=== PATIENT | male | born 1980 | race African-American/Black ===

== ENCOUNTER 2016-11-23 20:14 | Observation (INO) | payer MEDICARE, SELFPAY ==
[~2016-11-23] VITALS: Ht 193 cm; Wt 107.3 kg
[2016-11-23] MEDS ORDERED: SODIUM CHLORIDE 0.9% 1,000ML IVBOLUS ONE (21:00)
[2016-11-23] MEDS ORDERED: KETOROLAC 30 MG/1 ML IVPush ONE (21:00)
[2016-11-23] MEDS ORDERED: ZIPRASIDONE 20MG CAPSULE PO SCH (21:00)
[2016-11-23] MEDS ORDERED: LORazepam 1MG TABLET ONE (21:14)
[2016-11-23] MEDS ORDERED: KETOROLAC 30 MG/1 ML ONE (21:15)
[2016-11-23] MEDS ORDERED: LORazepam 1MG TABLET PO ONE (21:30)
[2016-11-23] MEDS: PLEASE ENTER ALLERGIES MC SCH ×2 (21:30)
[2016-11-23 21:31] LABS: ASPARTATE AMINO TRANSFERASE 38 U/L (15-37); BLOOD UREA NITROGEN 13 mg/dL (7-18)
[2016-11-23 21:36] LABS: ACETAMINOPHEN < 2 mcg/mL (10-30)
[2016-11-24 02:05] LABS: DAU SCREEN DISCLAIMER
[2016-11-24] MEDS ORDERED: ACETAMINOPHEN 325 MG TABLET PO PRN (02:30)
[2016-11-24] MEDS ORDERED: DOCUSATE 100 MG CAPSULE PO PRN (02:30)
[2016-11-24] MEDS ORDERED: TRAZODONE 50MG TABLET PO PRN (02:30)
[2016-11-24] MEDS ORDERED: POLYETHYLENE GLYCOL 17 GM PACKET PO PRN (02:30)
[2016-11-24] MEDS ORDERED: BISACODYL 10 MG SUPP PR PRN (02:30)
[2016-11-24] MEDS: PLEASE ENTER ALLERGIES MC SCH ×2 (08:02)
[2016-11-24] MEDS: FOLIC ACID 1 MG TABLET PO SCH (08:40)
[2016-11-24] MEDS: THIAMINE 100MG TABLET PO SCH (08:40)
[2016-11-24] MEDS: NICOTINE 14MG/24 HR PATCH.TD24 TD SCH (09:33)
[2016-11-24 22:18] VITALS: BP 108/76
[2016-11-25] MEDS: NICOTINE 14MG/24 HR PATCH.TD24 TD SCH (02:30)
[2016-11-25 08:00] VITALS: BP 105/60
[2016-11-25] MEDS: THIAMINE 100MG TABLET PO SCH (09:07)
[2016-11-25] MEDS: FOLIC ACID 1 MG TABLET PO SCH (09:07)
[2016-11-25] MEDS: ENOXAPARIN 40 MG/0.4 ML SQ SCH (12:30)
[2016-11-25 19:42] VITALS: BP 104/64
[2016-11-26 07:58] VITALS: BP 142/79
[2016-11-26] MEDS: THIAMINE 100MG TABLET PO SCH (08:48)
[2016-11-26] MEDS: FOLIC ACID 1 MG TABLET PO SCH (08:48)
[2016-11-26] MEDS: NICOTINE 14MG/24 HR PATCH.TD24 TD SCH (08:50)
[2016-11-26] MEDS: ENOXAPARIN 40 MG/0.4 ML SQ SCH (12:30)
[2016-11-26 19:24] VITALS: BP 144/80
[2016-11-27] MEDS: NICOTINE 14MG/24 HR PATCH.TD24 TD SCH (02:11)
[2016-11-27 08:16] VITALS: BP 105/64
[2016-11-27] MEDS: ENOXAPARIN 40 MG/0.4 ML SQ SCH (08:34)
[2016-11-27] MEDS: FOLIC ACID 1 MG TABLET PO SCH (08:34)
[2016-11-27] MEDS: THIAMINE 100MG TABLET PO SCH (08:34)
[2016-11-27 19:12] VITALS: BP 130/81
[2016-11-27 19:36] VITALS: BP 111/72
[2016-11-27] MEDS ORDERED: TRAZODONE 50MG TABLET ONE (20:48)
[2016-11-27] MEDS ORDERED: QUETIAPINE 100MG TABLET PO SCH (21:00)
[2016-11-27] MEDS: TRAZODONE 100MG TABLET PO PRN (22:05)
[2016-11-28] MEDS: NICOTINE 14MG/24 HR PATCH.TD24 TD SCH (02:56)
[2016-11-28] MEDS: FOLIC ACID 1 MG TABLET PO SCH (08:06)
[2016-11-28] MEDS: THIAMINE 100MG TABLET PO SCH (08:07)
[2016-11-28 08:20] VITALS: BP 124/78
[2016-11-28] MEDS: ENOXAPARIN 40 MG/0.4 ML SQ SCH (12:45)
[2016-11-28 16:03] LABS: ASPARTATE AMINO TRANSFERASE 7 U/L (15-37); BLOOD UREA NITROGEN 14 mg/dL (7-18)
[2016-11-28 19:53] VITALS: BP 93/55
[2016-11-28] MEDS: QUETIAPINE 100MG TABLET PO SCH (20:32)
[2016-11-28] MEDS ORDERED: QUETIAPINE 100MG TABLET PO SCH (21:00)
[2016-11-28] MEDS: TRAZODONE 100MG TABLET PO PRN (21:03)
[2016-11-28] MEDS ORDERED: TRAZODONE 50MG TABLET ONE (21:03)
[2016-11-29 08:06] VITALS: BP 107/70
[2016-11-29] MEDS: THIAMINE 100MG TABLET PO SCH (08:33)
[2016-11-29] MEDS: FOLIC ACID 1 MG TABLET PO SCH (08:33)
[2016-11-29] MEDS: NICOTINE 14MG/24 HR PATCH.TD24 TD SCH (08:35)
[2016-11-29] MEDS: ENOXAPARIN 40 MG/0.4 ML SQ SCH (12:49)
[2016-11-29 19:51] VITALS: BP 106/69
[2016-11-29] MEDS: QUETIAPINE 100MG TABLET PO SCH (20:15)
[2016-11-29] MEDS ORDERED: TRAZODONE 100MG TABLET PO PRN (20:30)
[2016-11-30 08:11] LABS: BLOOD UREA NITROGEN 9 mg/dL (7-18)
[2016-11-30 08:26] VITALS: BP 113/76
[2016-11-30] MEDS: FOLIC ACID 1 MG TABLET PO SCH (08:36)
[2016-11-30] MEDS: THIAMINE 100MG TABLET PO SCH (08:36)
[2016-11-30] MEDS: NICOTINE 14MG/24 HR PATCH.TD24 TD SCH (08:38)
[2016-11-30] MEDS: ENOXAPARIN 40 MG/0.4 ML SQ SCH (12:30)
[2016-11-30] MEDS ORDERED: QUET100T PO (16:33)
[2016-11-30] MEDS ORDERED: THIA100T6 PO (16:33)
[2016-11-30] MEDS ORDERED: FOLI-17 PO (16:33)
== END 2016-11-30 16:49 ==
LOC: ED 22:33 → EDIP 11-24 00:05 → 3E 11-24 12:13
PROVIDERS: ADMIT Internal Medicine; ATTEND Internal Medicine
DX: R45.851 Suicidal ideations (principal); R17 Unspecified jaundice; F25.0 Schizoaffective disorder, bipolar type; F10.10 Alcohol abuse, uncomplicated; F33.9 Major depressive disorder, recurrent, unspecified; F11.10 Opioid abuse, uncomplicated; F17.200 Nicotine dependence, unspecified, uncomplicated; Z91.5 Personal history of self-harm; Z91.19 Patient's noncompliance with other medical treatment and regimen
CPT/HCPCS: 36415; 74176; 80048; 80053; 80307; 80329; 81001; 85025; 96361; 96372; 96374; 99285; G0378; J1650; J1885; J7030; Q0177; G0480

== ENCOUNTER 2016-12-07 03:36 | Observation (INO) | payer MEDICARE ==
[~2016-12-07] VITALS: Ht 182.9 cm; Wt 109.0 kg
[~2016-12-07 03:36] MED LIST: FOLI-17 PO; QUET100T PO; THIA100T6 PO
[2016-12-07] MEDS ORDERED: ZIPRASIDONE 20 MG INJ IM ONE (04:15)
[2016-12-07] MEDS ORDERED: DIPHENHYDRAMINE 50 MG/ML, 1ML ONE (04:18)
[2016-12-07] MEDS ORDERED: HALOPERIDOL 5 MG/ML ONE (04:19)
[2016-12-07] MEDS ORDERED: LORazepam 2 MG/ML, 1ML ONE (04:19)
[2016-12-07] MEDS ORDERED: DIPHENHYDRAMINE 50 MG/ML, 1ML IM ONE (04:30)
[2016-12-07] MEDS ORDERED: LORazepam 2 MG/ML, 1ML IM ONE (04:30)
[2016-12-07] MEDS ORDERED: HALOPERIDOL 5 MG/ML IM ONE (04:30)
[2016-12-07 04:55] LABS: BLOOD UREA NITROGEN 16 mg/dL (7-18)
[2016-12-07 04:59] LABS: ACETAMINOPHEN < 2 mcg/mL (10-30)
[2016-12-07 12:32] LABS: DAU SCREEN DISCLAIMER
[2016-12-07] MEDS ORDERED: BISACODYL 10 MG SUPP PR PRN (15:00)
[2016-12-07] MEDS ORDERED: LORazepam 1MG TABLET PO PRN (15:00)
[2016-12-07] MEDS ORDERED: POLYETHYLENE GLYCOL 17 GM PACKET PO PRN (15:00)
[2016-12-07] MEDS ORDERED: DIPHENHYDRAMINE 50 MG CAPSULE PO PRN (15:00)
[2016-12-07] MEDS ORDERED: DOCUSATE 100 MG CAPSULE PO PRN (15:00)
[2016-12-07] MEDS ORDERED: HALOPERIDOL 5 MG TABLET PO PRN (15:00)
[2016-12-07 15:38] VITALS: BP 137/73
[2016-12-07] MEDS: POTASSIUM CHLORIDE 20 MEQ TAB.ER.PRT PO SCH (17:21)
[2016-12-07] MEDS: NICOTINE 7 MG/24 HR PATCH.TD24 TD SCH (17:22)
[2016-12-07 19:53] VITALS: BP 110/70
[2016-12-08 06:19] LABS: BLOOD UREA NITROGEN 12 mg/dL (7-18)
[2016-12-08 07:45] VITALS: BP 122/82
[2016-12-08] MEDS: POTASSIUM CHLORIDE 20 MEQ TAB.ER.PRT PO SCH ×3 (08:00→17:20)
[2016-12-08] MEDS: NICOTINE 7 MG/24 HR PATCH.TD24 TD SCH (17:13)
[2016-12-08] MEDS: MAGNESIUM CHLORIDE 64 MG TABLET.DR PO SCH ×2 (17:13→21:35)
[2016-12-08] MEDS ORDERED: PLEASE ENTER WEIGHT MC SCH (17:29)
[2016-12-08 17:30] VITALS: BP 118/71
[2016-12-08] MEDS: HYDROcodone/APAP 5/325 TABLET PO PRN (17:53)
[2016-12-08] MEDS ORDERED: ACETAMINOPHEN 325 MG TABLET PO PRN (18:00)
[2016-12-08 20:05] VITALS: BP 121/76
[2016-12-09] MEDS: HYDROcodone/APAP 5/325 TABLET PO PRN ×2 (02:15→19:22)
[2016-12-09 05:59] LABS: BLOOD UREA NITROGEN 11 mg/dL (7-18)
[2016-12-09 08:00] VITALS: BP 116/63
[2016-12-09] MEDS: MAGNESIUM CHLORIDE 64 MG TABLET.DR PO SCH ×3 (08:07→21:00)
[2016-12-09] MEDS: POTASSIUM CHLORIDE 20 MEQ TAB.ER.PRT PO SCH ×2 (08:07→12:39)
[2016-12-09] MEDS: NICOTINE 7 MG/24 HR PATCH.TD24 TD SCH (15:40)
[2016-12-09 20:01] VITALS: BP 121/77
[2016-12-09] MEDS ORDERED: SULFAMETH./TRIMETHOPRIM DS 800MG/160MG TABLET PO SCH (21:00)
== END 2016-12-09 20:30 ==
LOC: ED 05:31 → EDIP 14:03 → 3E 15:36
PROVIDERS: ADMIT Internal Medicine; ATTEND Internal Medicine
DX: R45.851 Suicidal ideations (principal); F31.9 Bipolar disorder, unspecified; R44.0 Auditory hallucinations; F19.10 Other psychoactive substance abuse, uncomplicated; E87.6 Hypokalemia; F25.9 Schizoaffective disorder, unspecified; F17.200 Nicotine dependence, unspecified, uncomplicated; Z91.5 Personal history of self-harm; F22 Delusional disorders
CPT/HCPCS: 36415; 73630; 80048; 80307; 80329; 81003; 82040; 85025; 96372; 99285; G0378; J1200; J1630; J2060; G0480

== ENCOUNTER 2017-01-05 12:26 | Observation (INO) | payer MEDICARE, OTHER ==
[~2017-01-05] VITALS: Ht 193 cm; Wt 128.0 kg
[2017-01-05 12:55] LABS: DAU SCREEN DISCLAIMER
[2017-01-05 13:19] LABS: HEMATOCRIT 43.2 % (39.2-51.8); WHITE BLOOD COUNT 6.7 x10^3/uL (3.4-10)
[2017-01-05 13:27] LABS: ASPARTATE AMINO TRANSFERASE 41 U/L (15-37); BLOOD UREA NITROGEN 10 mg/dL (7-18)
[2017-01-05 13:30] LABS: ACETAMINOPHEN < 2 mcg/mL (10-30)
[2017-01-05] MEDS ORDERED: POTASSIUM CHLORIDE 20 MEQ TAB.ER.PRT ONE (13:58)
[2017-01-05] MEDS ORDERED: POTASSIUM CHLORIDE 20 MEQ TAB.ER.PRT PO ONE (14:00)
[2017-01-05] MEDS ORDERED: POLYETHYLENE GLYCOL 17 GM PACKET PO PRN (19:30)
[2017-01-05] MEDS ORDERED: BISACODYL 10 MG SUPP PR PRN (19:30)
[2017-01-05] MEDS ORDERED: DOCUSATE 100 MG CAPSULE PO PRN (19:30)
[2017-01-05] MEDS ORDERED: ACETAMINOPHEN 325 MG TABLET PO PRN (19:30)
[2017-01-05] MEDS ORDERED: QUETIAPINE 25MG TABLET PO PRN (19:30)
[2017-01-05] MEDS ORDERED: LORazepam 1MG TABLET PO PRN (19:30)
[2017-01-05] MEDS ORDERED: ONDANSETRON ODT 4 MG PO PRN (19:30)
[2017-01-05 20:11] VITALS: BP 145/81
[2017-01-05] MEDS ORDERED: QUETIAPINE 100MG TABLET PO SCH (21:00)
[2017-01-06 06:02] LABS: BLOOD UREA NITROGEN 8 mg/dL (7-18)
[2017-01-06 07:42] VITALS: BP 128/75
[2017-01-06] MEDS ORDERED: FOLIC ACID 1 MG TABLET PO SCH (09:00)
[2017-01-06] MEDS ORDERED: MULTIVITAMIN 1 TABLET PO SCH (09:00)
[2017-01-06] MEDS ORDERED: THIAMINE 100MG TABLET PO SCH (09:00)
[2017-01-06] MEDS ORDERED: POTASSIUM CHLORIDE 20 MEQ TAB.ER.PRT PO SCH (17:00)
== END 2017-01-06 15:04 ==
LOC: EDBD → ED 15:22 → MERGE 15:22 → SUATTDRO 19:02 → EDIP 19:17 → INTOOBSV 19:17 → 3E 20:09
DX: R45.851 Suicidal ideations (principal); M79.673 Pain in unspecified foot; G89.29 Other chronic pain; E87.6 Hypokalemia; F15.20 Other stimulant dependence, uncomplicated; F17.210 Nicotine dependence, cigarettes, uncomplicated; F19.10 Other psychoactive substance abuse, uncomplicated; F25.9 Schizoaffective disorder, unspecified; F31.9 Bipolar disorder, unspecified
CPT/HCPCS: 36415; 80048; 80053; 80307; 80329; 83735; 85025; 93005; 99285; G0378; G0480

== ENCOUNTER 2017-07-09 23:30 | Observation (INO) | payer MEDICARE ==
[~2017-07-09] VITALS: Ht 193 cm; Wt 115.0 kg
[2017-07-10] MEDS ORDERED: ACETAMINOPHEN 325 MG TABLET PO ONE (00:30)
[2017-07-10 00:54] LABS: ALANINE AMINOTRANSFERASE 52 U/L (12-78); ALBUMIN 3.9 g/dL (3.4-5.0); ANION GAP 11 mmol/L (5-15); CALCIUM 8.4 mg/dL (8.5-10.1); CHLORIDE 103 mmol/L (98-107); CREATININE 0.93 mg/dL (0.7-1.3)
[2017-07-10 00:56] LABS: ALKALINE PHOSPHATASE 78 U/L (45-117); BILIRUBIN,TOTAL 1.1 mg/dL (0.2-1.0); TOTAL PROTEIN 7.7 g/dL (6.4-8.2)
[2017-07-10 00:57] LABS: ACETAMINOPHEN < 2 mcg/mL (10-30); SALICYLATE LEVEL < 1.7 mg/dL (2.8-20.0)
[2017-07-10 00:58] LABS: BASOPHILS # (AUTO) 0.03 x10^3/uL (0-0.1); BASOPHILS % (AUTO) 1 % (0-1); EOSINOPHILS # (AUTO) 0.07 x10^3/uL (0-0.4); EOSINOPHILS % (AUTO) 1 % (1-7); LYMPHOCYTES # (AUTO) 1.52 x10^3/uL (1-3.4); LYMPHOCYTES % (AUTO) 24 % (22-44); MD NO; MEAN CORPUSCULAR HEMOGLOBIN 31.1 pg (27.5-34.5); MEAN CORPUSCULAR HGB CONC 34.3 g/dL (33.2-36.2); MEAN CORPUSCULAR VOLUME 90.7 fL (81-97); MEAN PLATELET VOLUME 9.3 fL (7.4-10.4); MONOCYTES # (AUTO) 0.76 x10^3/uL (0.2-0.8); MONOCYTES % (AUTO) 12 % (2-9); NEUTROPHILS # (AUTO) 3.84 x10^3/uL (1.8-6.8); NEUTROPHILS % (AUTO) 62 % (42-75); PLATELET COUNT 218 x10^3/uL (130-400); RED BLOOD COUNT 4.69 x10^6/uL (4.38-5.82); RED CELL DISTRIBUTION WIDTH 12.3 % (9.4-14.8)
[2017-07-10] MEDS ORDERED: QUETIAPINE 25MG TABLET ONE (02:59)
[2017-07-10] MEDS ORDERED: QUETIAPINE 100MG TABLET PO ONE (03:00)
[2017-07-10] MEDS ORDERED: DOCUSATE 100 MG CAPSULE PO PRN (05:30)
[2017-07-10] MEDS ORDERED: LORazepam 2 MG/ML, 1ML IM PRN (05:30)
[2017-07-10] MEDS ORDERED: ACETAMINOPHEN 325 MG TABLET PO PRN (05:30)
[2017-07-10] MEDS ORDERED: ONDANSETRON ODT 4 MG PO PRN (05:30)
[2017-07-10 05:57] LABS: FREE T4 (FREE THYROXINE) 1.36 ng/dL (0.76-1.46); THYROID STIMULATING HORMONE 1.36 mIU/L (0.358-3.740)
[2017-07-10] MEDS ORDERED: THIAMINE 100MG TABLET ONE (07:26)
[2017-07-10] MEDS: GABAPENTIN 100 MG CAPSULE PO SCH ×4 (08:00→22:09)
[2017-07-10] MEDS: THIAMINE 100MG TABLET PO SCH (08:00)
[2017-07-10 09:11] LABS: MICROSCOPIC NOT IND
[2017-07-10 09:20] LABS: AMPHETAMINE SCREEN, URINE Positive (Negative); BARBITURATE SCREEN, URINE Negative (Negative); BENZODIAZEPINE SCREEN, URINE Negative (Negative); CANNABINOID SCREEN, URINE Positive (Negative); COCAINE SCREEN, URINE Negative (Negative); METHADONE SCREEN, URINE Negative (Negative); OPIATE SCREEN, URINE Positive (Negative)
[2017-07-10 09:24] LABS: CULTURE INDICATED? NO
[2017-07-10] MEDS: FOLIC ACID 1 MG TABLET PO SCH (10:00)
[2017-07-10] MEDS ORDERED: FLUO10CA7 PO (10:17)
[2017-07-10] MEDS: FLUOXETINE HCL 20 MG CAPSULE PO SCH (14:23)
[2017-07-10] MEDS ORDERED: QUETIAPINE 100MG TABLET ONE (22:04)
[2017-07-10] MEDS: QUETIAPINE 100MG TABLET PO SCH (22:09)
[2017-07-11] MEDS ORDERED: THIAMINE 100MG TABLET ONE (07:16)
[2017-07-11] MEDS ORDERED: FLUOXETINE HCL 20 MG CAPSULE ONE (07:16)
[2017-07-11] MEDS: FLUOXETINE HCL 20 MG CAPSULE PO SCH (07:25)
[2017-07-11] MEDS: GABAPENTIN 100 MG CAPSULE PO SCH ×4 (07:25→20:27)
[2017-07-11] MEDS: THIAMINE 100MG TABLET PO SCH (07:25)
[2017-07-11] MEDS ORDERED: LORazepam 1MG TABLET ONE (08:53)
[2017-07-11] MEDS: FOLIC ACID 1 MG TABLET PO SCH (08:55)
[2017-07-11] MEDS: LORazepam 1MG TABLET PO PRN (08:55)
[2017-07-11 17:08] VITALS: BP 129/78
[2017-07-11 19:48] VITALS: BP 126/71
[2017-07-11] MEDS: QUETIAPINE 100MG TABLET PO SCH (20:27)
[2017-07-12] MEDS: GABAPENTIN 100 MG CAPSULE PO SCH ×4 (06:25→21:20)
[2017-07-12 08:00] VITALS: BP 131/77
[2017-07-12] MEDS: THIAMINE 100MG TABLET PO SCH (08:35)
[2017-07-12] MEDS: FLUOXETINE HCL 20 MG CAPSULE PO SCH (08:35)
[2017-07-12] MEDS: FOLIC ACID 1 MG TABLET PO SCH (08:35)
[2017-07-12 19:39] VITALS: BP 129/81
[2017-07-12] MEDS: QUETIAPINE 100MG TABLET PO SCH (21:20)
[2017-07-13] MEDS: GABAPENTIN 100 MG CAPSULE PO SCH ×4 (06:19→20:37)
[2017-07-13 07:19] VITALS: BP 149/90
[2017-07-13] MEDS: FOLIC ACID 1 MG TABLET PO SCH (08:19)
[2017-07-13] MEDS: THIAMINE 100MG TABLET PO SCH (08:19)
[2017-07-13] MEDS: FLUOXETINE HCL 20 MG CAPSULE PO SCH (08:19)
[2017-07-13 19:39] VITALS: BP 123/74
[2017-07-13] MEDS: QUETIAPINE 100MG TABLET PO SCH (20:37)
[2017-07-14] MEDS: THIAMINE 100MG TABLET PO SCH (07:40)
[2017-07-14] MEDS: GABAPENTIN 100 MG CAPSULE PO SCH ×4 (07:40→21:17)
[2017-07-14] MEDS: FLUOXETINE HCL 20 MG CAPSULE PO SCH (07:41)
[2017-07-14] MEDS: FOLIC ACID 1 MG TABLET PO SCH (07:41)
[2017-07-14 07:44] VITALS: BP 111/69
[2017-07-14 19:37] VITALS: BP 131/69
[2017-07-14] MEDS: QUETIAPINE 100MG TABLET PO SCH (21:17)
[2017-07-15] MEDS: GABAPENTIN 100 MG CAPSULE PO SCH ×4 (06:00→19:58)
[2017-07-15 07:24] VITALS: BP 122/79
[2017-07-15] MEDS: FOLIC ACID 1 MG TABLET PO SCH (08:42)
[2017-07-15] MEDS: FLUOXETINE HCL 20 MG CAPSULE PO SCH (08:42)
[2017-07-15] MEDS: THIAMINE 100MG TABLET PO SCH (08:42)
[2017-07-15 19:37] VITALS: BP 134/74
[2017-07-15] MEDS: QUETIAPINE 100MG TABLET PO SCH (19:59)
[2017-07-16] MEDS: GABAPENTIN 100 MG CAPSULE PO SCH ×4 (06:35→19:59)
[2017-07-16 07:55] VITALS: BP 117/74
[2017-07-16] MEDS: THIAMINE 100MG TABLET PO SCH (08:27)
[2017-07-16] MEDS: FOLIC ACID 1 MG TABLET PO SCH (08:27)
[2017-07-16] MEDS: FLUOXETINE HCL 20 MG CAPSULE PO SCH (08:27)
[2017-07-16 19:28] VITALS: BP 127/80
[2017-07-16] MEDS: QUETIAPINE 100MG TABLET PO SCH (20:00)
[2017-07-17] MEDS: GABAPENTIN 100 MG CAPSULE PO SCH ×4 (06:03→20:50)
[2017-07-17 07:30] VITALS: BP 118/69
[2017-07-17] MEDS: FOLIC ACID 1 MG TABLET PO SCH (08:46)
[2017-07-17] MEDS: FLUOXETINE HCL 20 MG CAPSULE PO SCH (08:46)
[2017-07-17] MEDS: THIAMINE 100MG TABLET PO SCH (08:46)
[2017-07-17] MEDS: LORazepam 1MG TABLET PO PRN (16:01)
[2017-07-17 20:00] VITALS: BP 122/83
[2017-07-17] MEDS: QUETIAPINE 100MG TABLET PO SCH (20:50)
[2017-07-18 07:30] VITALS: BP 98/75
[2017-07-18] MEDS: GABAPENTIN 100 MG CAPSULE PO SCH ×4 (07:43→20:26)
[2017-07-18] MEDS: FOLIC ACID 1 MG TABLET PO SCH (08:44)
[2017-07-18] MEDS: THIAMINE 100MG TABLET PO SCH (08:44)
[2017-07-18] MEDS: FLUOXETINE HCL 20 MG CAPSULE PO SCH (08:45)
[2017-07-18] MEDS: LORazepam 1MG TABLET PO PRN (13:34)
[2017-07-18] MEDS ORDERED: LORazepam 1MG TABLET PO PRN (15:00)
[2017-07-18 20:10] VITALS: BP 125/79
[2017-07-18] MEDS: QUETIAPINE 100MG TABLET PO SCH (20:26)
[2017-07-19] MEDS: GABAPENTIN 100 MG CAPSULE PO SCH ×4 (06:39→20:19)
[2017-07-19] MEDS: FLUOXETINE HCL 20 MG CAPSULE PO SCH (08:22)
[2017-07-19] MEDS: FOLIC ACID 1 MG TABLET PO SCH (08:22)
[2017-07-19] MEDS: THIAMINE 100MG TABLET PO SCH (08:23)
[2017-07-19 08:24] VITALS: BP 131/86
[2017-07-19] MEDS: hydrOXyzine 10MG TABLET PO PRN (18:25)
[2017-07-19 19:39] VITALS: BP 120/77
[2017-07-19] MEDS: QUETIAPINE 100MG TABLET PO SCH (20:20)
[2017-07-20] MEDS: GABAPENTIN 100 MG CAPSULE PO SCH ×4 (06:10→20:28)
[2017-07-20 07:40] VITALS: BP 103/62
[2017-07-20] MEDS: THIAMINE 100MG TABLET PO SCH (08:25)
[2017-07-20] MEDS: FOLIC ACID 1 MG TABLET PO SCH (08:25)
[2017-07-20] MEDS: FLUOXETINE HCL 20 MG CAPSULE PO SCH (08:25)
[2017-07-20] MEDS: hydrOXyzine 10MG TABLET PO PRN (10:45)
[2017-07-20 19:58] VITALS: BP 121/84
[2017-07-20] MEDS: QUETIAPINE 100MG TABLET PO SCH (20:28)
[2017-07-21] MEDS: GABAPENTIN 100 MG CAPSULE PO SCH ×2 (06:47→11:02)
[2017-07-21] MEDS: hydrOXyzine 10MG TABLET PO PRN (08:01)
[2017-07-21] MEDS: FLUOXETINE HCL 20 MG CAPSULE PO SCH (08:01)
[2017-07-21] MEDS: FOLIC ACID 1 MG TABLET PO SCH (08:01)
[2017-07-21] MEDS: THIAMINE 100MG TABLET PO SCH (08:01)
[2017-07-21 08:32] VITALS: BP 97/59
== END 2017-07-21 14:46 ==
LOC: ED 23:59 → EDIP 07-10 03:46 → 2N 07-11 16:53
PROVIDERS: ADMIT Internal Medicine; ATTEND Internal Medicine
DX: R45.851 Suicidal ideations (principal); F25.9 Schizoaffective disorder, unspecified; F31.9 Bipolar disorder, unspecified; F15.10 Other stimulant abuse, uncomplicated; F10.10 Alcohol abuse, uncomplicated; F17.210 Nicotine dependence, cigarettes, uncomplicated; Z59.0 Homelessness
CPT/HCPCS: 36415; 80053; 80307; 80329; 81003; 84439; 84443; 85025; 99285; G0378; G0480

== ENCOUNTER 2017-08-21 20:51 | Emergency (ER) | payer MEDICARE ==
[~2017-08-21] VITALS: Ht 188 cm; Wt 114.0 kg
[~2017-08-21 20:51] MED LIST changes: +FLUO10CA7 PO
[2017-08-21] MEDS ORDERED: LORazepam 1MG TABLET ONE (21:09)
[2017-08-21] MEDS ORDERED: HALOPERIDOL 5 MG/ML IM ONE (21:30)
[2017-08-21] MEDS ORDERED: LORazepam 1MG TABLET PO ONE (21:30)
[2017-08-21] MEDS ORDERED: HALOPERIDOL 5 MG/ML ONE (21:33)
[2017-08-21] MEDS ORDERED: SODIUM CHLORIDE 0.9% 1,000ML IVBOLUS ONE (22:00)
[2017-08-21] MEDS ORDERED: LORazepam 2 MG/ML, 1ML ONE (22:14)
[2017-08-21 22:18] LABS: BASOPHILS # (AUTO) 0.03 x10^3/uL (0-0.1); BASOPHILS % (AUTO) 1 % (0-1); EOSINOPHILS # (AUTO) 0.03 x10^3/uL (0-0.4); EOSINOPHILS % (AUTO) 0 % (1-7); LYMPHOCYTES # (AUTO) 1.41 x10^3/uL (1-3.4); LYMPHOCYTES % (AUTO) 19 % (22-44); MD NO; MEAN CORPUSCULAR HEMOGLOBIN 31.5 pg (27.5-34.5); MEAN CORPUSCULAR HGB CONC 34.6 g/dL (33.2-36.2); MEAN CORPUSCULAR VOLUME 91.1 fL (81-97); MEAN PLATELET VOLUME 9.1 fL (7.4-10.4); MONOCYTES # (AUTO) 0.78 x10^3/uL (0.2-0.8); MONOCYTES % (AUTO) 11 % (2-9); NEUTROPHILS % (AUTO) 69 % (42-75); PLATELET COUNT 196 x10^3/uL (130-400); RED BLOOD COUNT 4.31 x10^6/uL (4.38-5.82); RED CELL DISTRIBUTION WIDTH 13.3 % (9.4-14.8)
[2017-08-21 22:28] LABS: ALANINE AMINOTRANSFERASE 39 U/L (12-78); ALBUMIN 3.5 g/dL (3.4-5.0); ANION GAP 10 mmol/L (5-15); CALCIUM 8.3 mg/dL (8.5-10.1); CHLORIDE 106 mmol/L (98-107); CREATININE 0.92 mg/dL (0.7-1.3)
[2017-08-21] MEDS ORDERED: LORazepam 2 MG/ML, 1ML IM ONE (22:30)
[2017-08-21 22:31] LABS: ALKALINE PHOSPHATASE 80 U/L (45-117); BILIRUBIN,TOTAL 1.4 mg/dL (0.2-1.0)
[2017-08-21 22:32] LABS: ACETAMINOPHEN < 2 mcg/mL (10-30); SALICYLATE LEVEL < 1.7 mg/dL (2.8-20.0)
[2017-08-22] MEDS ORDERED: OMNIPAQUE 350 MG/ML, 100ML BOTTLE ONE (02:09)
[2017-08-22 04:09] VITALS: BP 137/85
== END 2017-08-22 05:36 | disposition home or self-care (01) ==
LOC: ED 23:41
DX: S30.0XXA Contusion of lower back and pelvis, initial encounter (principal); S20.229A Contusion of unspecified back wall of thorax, initial encounter; Z79.899 Other long term (current) drug therapy; F31.9 Bipolar disorder, unspecified; F25.9 Schizoaffective disorder, unspecified; Z72.9 Problem related to lifestyle, unspecified; W22.8XXA Striking against or struck by other objects, initial encounter; Y93.89 Activity, other specified; Y99.8 Other external cause status; Y92.89 Other specified places as the place of occurrence of the external cause
CPT/HCPCS: 36415; 71260; 74177; 80053; 80307; 80329; 83690; 85025; 96360; 96361; 96372; 99291; J1630; J2060; J7030; Q9967; G0480

== ENCOUNTER 2017-09-08 01:02 | Observation (INO) | payer MEDICARE, MEDICAID ==
[~2017-09-08] VITALS: Ht 185.4 cm; Wt 100.6 kg
[2017-09-08 01:54] LABS: BASOPHILS # (AUTO) 0.03 x10^3/uL (0-0.1); BASOPHILS % (AUTO) 0 % (0-1); EOSINOPHILS # (AUTO) 0.05 x10^3/uL (0-0.4); EOSINOPHILS % (AUTO) 1 % (1-7); LYMPHOCYTES # (AUTO) 1.74 x10^3/uL (1-3.4); LYMPHOCYTES % (AUTO) 20 % (22-44); MD NO; MEAN CORPUSCULAR HEMOGLOBIN 30.4 pg (27.5-34.5); MEAN CORPUSCULAR HGB CONC 33.3 g/dL (33.2-36.2); MEAN CORPUSCULAR VOLUME 91.2 fL (81-97); MEAN PLATELET VOLUME 8.3 fL (7.4-10.4); MONOCYTES # (AUTO) 1.03 x10^3/uL (0.2-0.8); MONOCYTES % (AUTO) 12 % (2-9); NEUTROPHILS # (AUTO) 5.67 x10^3/uL (1.8-6.8); NEUTROPHILS % (AUTO) 67 % (42-75); PLATELET COUNT 218 x10^3/uL (130-400); RED BLOOD COUNT 4.61 x10^6/uL (4.38-5.82); RED CELL DISTRIBUTION WIDTH 14.2 % (9.4-14.8)
[2017-09-08] MEDS ORDERED: LORazepam 1MG TABLET ONE (01:59)
[2017-09-08] MEDS ORDERED: LORazepam 1MG TABLET PO ONE (02:00)
[2017-09-08 02:06] LABS: ALBUMIN 3.8 g/dL (3.4-5.0); ANION GAP 12 mmol/L (5-15); CALCIUM 8.5 mg/dL (8.5-10.1); CHLORIDE 104 mmol/L (98-107); CREATININE 0.85 mg/dL (0.7-1.3)
[2017-09-08 02:10] LABS: SALICYLATE LEVEL < 1.7 mg/dL (2.8-20.0)
[2017-09-08 02:11] LABS: ACETAMINOPHEN < 2 mcg/mL (10-30)
[2017-09-08 06:27] LABS: AMPHETAMINE SCREEN, URINE Positive (Negative); BARBITURATE SCREEN, URINE Negative (Negative); BENZODIAZEPINE SCREEN, URINE Negative (Negative); CANNABINOID SCREEN, URINE Negative (Negative); COCAINE SCREEN, URINE Negative (Negative); METHADONE SCREEN, URINE Negative (Negative); OPIATE SCREEN, URINE Negative (Negative)
[2017-09-08 08:35] VITALS: BP 119/77
[2017-09-08] MEDS: THIAMINE 100MG TABLET PO SCH (09:09)
[2017-09-08] MEDS: FOLIC ACID 1 MG TABLET PO SCH (09:09)
[2017-09-08] MEDS: FLUOXETINE HCL 20 MG CAPSULE PO SCH (09:10)
[2017-09-08] MEDS: ACETAMINOPHEN 325 MG TABLET PO PRN (18:09)
[2017-09-08 19:29] VITALS: BP 121/73
[2017-09-08] MEDS: QUETIAPINE 100MG TABLET PO SCH ×2 (20:12→20:23)
[2017-09-09 07:38] VITALS: BP 112/67
[2017-09-09] MEDS: ACETAMINOPHEN 325 MG TABLET PO PRN (07:58)
[2017-09-09] MEDS: FOLIC ACID 1 MG TABLET PO SCH (07:58)
[2017-09-09] MEDS: THIAMINE 100MG TABLET PO SCH (07:58)
[2017-09-09] MEDS: FLUOXETINE HCL 20 MG CAPSULE PO SCH (07:58)
== END 2017-09-09 19:21 ==
LOC: SUATTDRO 03:44 → ED 04:05 → EDIP 04:16 → 3E 08:21
PROVIDERS: ADMIT Hospitalist; ATTEND Hospitalist
DX: T14.91XA Suicide attempt, initial encounter (principal); F25.9 Schizoaffective disorder, unspecified; F31.9 Bipolar disorder, unspecified; F10.129 Alcohol abuse with intoxication, unspecified; F15.10 Other stimulant abuse, uncomplicated; X83.8XXA Intentional self-harm by other specified means, initial encounter; Y93.89 Activity, other specified; Y92.89 Other specified places as the place of occurrence of the external cause; Y99.8 Other external cause status; Z91.5 Personal history of self-harm
CPT/HCPCS: 36415; 73110; 80048; 80307; 80329; 82040; 85025; 99285; G0378; G0480

== ENCOUNTER 2017-10-19 06:48 | Observation (INO) | payer MEDICARE, MEDICAID ==
[~2017-10-19] VITALS: Ht 193 cm; Wt 102.1 kg
[2017-10-19] MEDS ORDERED: ONDANSETRON ODT 4 MG PO ONE (07:00)
[2017-10-19 07:12] LABS: BASOPHILS # (AUTO) 0.04 x10^3/uL (0-0.1); BASOPHILS % (AUTO) 1 % (0-1); EOSINOPHILS # (AUTO) 0.03 x10^3/uL (0-0.4); EOSINOPHILS % (AUTO) 0 % (1-7); LYMPHOCYTES # (AUTO) 1.77 x10^3/uL (1-3.4); LYMPHOCYTES % (AUTO) 20 % (22-44); MD NO; MEAN CORPUSCULAR HGB CONC 34.1 g/dL (33.2-36.2); MEAN PLATELET VOLUME 7.5 fL (7.4-10.4); MONOCYTES # (AUTO) 0.95 x10^3/uL (0.2-0.8); MONOCYTES % (AUTO) 11 % (2-9); NEUTROPHILS # (AUTO) 6.12 x10^3/uL (1.8-6.8); NEUTROPHILS % (AUTO) 69 % (42-75); PLATELET COUNT 267 x10^3/uL (130-400); RED BLOOD COUNT 5.07 x10^6/uL (4.38-5.82); RED CELL DISTRIBUTION WIDTH 13.6 % (9.4-14.8)
[2017-10-19] MEDS ORDERED: seroquel (07:19)
[2017-10-19 07:23] LABS: ALBUMIN 4.1 g/dL (3.4-5.0); ANION GAP 14 mmol/L (5-15); CALCIUM 8.3 mg/dL (8.5-10.1); CHLORIDE 101 mmol/L (98-107); CREATININE 0.98 mg/dL (0.7-1.3)
[2017-10-19 07:25] LABS: ACETAMINOPHEN < 2 mcg/mL (10-30); SALICYLATE LEVEL < 1.7 mg/dL (2.8-20.0)
[2017-10-19] MEDS ORDERED: ONDANSETRON ODT 4 MG ONE (07:27)
[2017-10-19] MEDS ORDERED: HALOPERIDOL 5 MG/ML ONE (09:48)
[2017-10-19] MEDS ORDERED: HALOPERIDOL 5 MG/ML IM PRN ×2 (10:00→14:00)
[2017-10-19] MEDS ORDERED: ZIPRASIDONE 20 MG INJ IM ONE ×2 (10:18→10:30)
[2017-10-19] MEDS ORDERED: LORazepam 1MG TABLET ONE (10:24)
[2017-10-19] MEDS ORDERED: LORazepam 1MG TABLET PO ONE (10:30)
[2017-10-19] MEDS ORDERED: ASPIRIN 81 MG TABLET CHEW PO ONE (11:00)
[2017-10-19 11:11] LABS: INTERNATIONAL NORMALIZED RATIO 0.99 (0.93-1.1); PROTHROMBIN TIME 10.3 Seconds (9.6-11.5)
[2017-10-19 13:42] LABS: AMPHETAMINE SCREEN, URINE Positive (Negative); BARBITURATE SCREEN, URINE Negative (Negative); BENZODIAZEPINE SCREEN, URINE Negative (Negative); CANNABINOID SCREEN, URINE Negative (Negative); COCAINE SCREEN, URINE Negative (Negative); METHADONE SCREEN, URINE Negative (Negative); OPIATE SCREEN, URINE Positive (Negative)
[2017-10-19] MEDS ORDERED: POLYETHYLENE GLYCOL 17 GM PACKET PO PRN (14:00)
[2017-10-19] MEDS ORDERED: ZIPRASIDONE 20 MG INJ IM PRN (14:00)
[2017-10-19] MEDS ORDERED: ACETAMINOPHEN 325 MG TABLET PO PRN (14:00)
[2017-10-19] MEDS ORDERED: DIPHENHYDRAMINE 50 MG CAPSULE PO PRN (21:00)
[2017-10-19] MEDS ORDERED: PLEASE ENTER WEIGHT MC SCH (23:00)
[2017-10-20] MEDS ORDERED: LORazepam 1MG TABLET ONE (02:16)
[2017-10-20] MEDS: LORazepam 1MG TABLET PO PRN (02:18)
[2017-10-20 15:54] VITALS: BP 148/85
[2017-10-20] MEDS: SENNA/DOCUSATE TABLET PO SCH (16:41)
[2017-10-20 19:40] VITALS: BP 109/65
[2017-10-21 07:15] VITALS: BP 111/72
[2017-10-21] MEDS: SENNA/DOCUSATE TABLET PO SCH (08:48)
[2017-10-21] MEDS: LORazepam 1MG TABLET PO PRN (10:25)
== END 2017-10-21 11:33 | disposition short-term general hospital (02) ==
LOC: ED 08:08 → EDIP 12:04 → 3E 10-20 15:23
PROVIDERS: ADMIT Internal Medicine Pulmonary Disease; ATTEND Internal Medicine Pulmonary Disease
DX: R45.851 Suicidal ideations (principal); F22 Delusional disorders; R45.1 Restlessness and agitation; F15.90 Other stimulant use, unspecified, uncomplicated; F25.9 Schizoaffective disorder, unspecified; F31.9 Bipolar disorder, unspecified
CPT/HCPCS: 36415; 80048; 80307; 80329; 82040; 85025; 85610; 85730; 96372; 99285; G0378; J1630; J3486; Q0162; G0480

== ENCOUNTER 2018-05-29 04:14 | Emergency (ER) | payer MEDICARE ==
[~2018-05-29] VITALS: Ht 193 cm; Wt 109.4 kg
[~2018-05-29 04:14] MED LIST changes: -THIA100T6 PO; +THIA100T67 PO; +seroquel
--- NOTE | 2018-05-29 04:16 | NUR ---
NO ANSWER WHEN CALLED FOR TRIAGE
[2018-05-29 04:18] VITALS: BP 126/77
--- NOTE | 2018-05-29 04:25 | NUR ---
PT TO SECURED ROOM, ALL BELONGINGS REMOVED AND SECURED, PT STATES THAT HE IS UNABLE TO PROVIDE A URINE SPECIMEN AT THIS TIME, WATER PROVIDED. PT IS COOPERATIVE A THIS TIME.
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
--- NOTE | 2018-05-29 04:31 | NUR ---
PT PROVEDED WITH WARM BLANKETS.
--- NOTE | 2018-05-29 04:33 | NUR ---
PT IN [place] ROOM AND SITTER IN PLACE IN THIS AREA FOR ANOTHER PT AT THIS TIME. VERY LOW ELOPEMENT RISK.
[2018-05-29 05:00] LABS: BASOPHILS # (AUTO) 0.04 x10^3/uL (0-0.1); BASOPHILS % (AUTO) 0 % (0-1); EOSINOPHILS # (AUTO) 0.11 x10^3/uL (0-0.4); EOSINOPHILS % (AUTO) 1 % (1-7); LYMPHOCYTES # (AUTO) 1.72 x10^3/uL (1-3.4); LYMPHOCYTES % (AUTO) 18 % (22-44); MD NO; MEAN CORPUSCULAR HEMOGLOBIN 31.7 pg (27.5-34.5); MEAN CORPUSCULAR VOLUME 93.1 fL (81-97); MEAN PLATELET VOLUME 8.8 fL (7.4-10.4); MONOCYTES # (AUTO) 1.22 x10^3/uL (0.2-0.8); MONOCYTES % (AUTO) 13 % (2-9); NEUTROPHILS % (AUTO) 68 % (42-75); PLATELET COUNT 187 x10^3/uL (130-400); RED BLOOD COUNT 5.25 x10^6/uL (4.38-5.82)
--- NOTE | 2018-05-29 05:07 | NUR ---
URINE PROVIDED, PT GIVEN CEREAL AT THIS TIME. REMAINS COOPERATIVE.
[2018-05-29 05:19] LABS: ALANINE AMINOTRANSFERASE 165 U/L (12-78); ALBUMIN 3.9 g/dL (3.4-5.0); ALKALINE PHOSPHATASE 83 U/L (45-117); BILIRUBIN,TOTAL 1.6 mg/dL (0.2-1.0); CALCIUM 8.2 mg/dL (8.5-10.1); CREATININE 0.86 mg/dL (0.7-1.3); TOTAL PROTEIN 7.4 g/dL (6.4-8.2)
[2018-05-29 05:20] LABS: SALICYLATE LEVEL < 1.7 mg/dL (2.8-20.0)
--- NOTE | 2018-05-29 05:27 | NUR ---
resting quietly, in camera room, await lab results.
[2018-05-29 05:29] LABS: ANION GAP 9 mmol/L (5-15); CHLORIDE 106 mmol/L (98-107)
[2018-05-29 05:30] LABS: ACETAMINOPHEN < 2 mcg/mL (10-30)
[2018-05-29 05:32] LABS: AMPHETAMINE SCREEN, URINE Positive (Negative); BARBITURATE SCREEN, URINE Negative (Negative); BENZODIAZEPINE SCREEN, URINE Positive (Negative); CANNABINOID SCREEN, URINE Negative (Negative); COCAINE SCREEN, URINE Negative (Negative); METHADONE SCREEN, URINE Negative (Negative); OPIATE SCREEN, URINE Negative (Negative)
--- NOTE | 2018-05-29 06:21 | NUR ---
Dr Hoffman places pt on hold at this time, bed requested. Pt sleeping quietly, Sitter is outside room for pt safety and in camera monitored room. Pt has been cooperative and calm, ambulated with steady gait to bathroom requiring no assistive devices of any kind.
--- NOTE | 2018-05-29 06:26 | NUR ---
referral was fax[facility] to [facility], [facility]
--- NOTE | 2018-05-29 06:55 | NUR ---
REPORT TO CORNELIO AT [facility].
[2018-05-29] MEDS ORDERED: ACETAMINOPHEN 325 MG TABLET PO PRN (07:00)
[2018-05-29] MEDS ORDERED: LORazepam 1MG TABLET PO PRN (07:00)
[2018-05-29] MEDS ORDERED: HALOPERIDOL 1 MG TABLET PO PRN (07:00)
--- NOTE | 2018-05-29 07:10 | NUR ---
Recieved report from LANA Valadez. All questions answered. Assuming care of this pt.
[2018-05-29] MEDS ORDERED: NITROGLYCERIN 0.4 MG/SPRAY SL PRN (07:30)
[2018-05-29] MEDS ORDERED: NITROGLYCERIN 0.4 MG BOTTLE (25 TABS) SL PRN (07:30)
[2018-05-29 07:41] LABS: BILIRUBIN,TOTAL 1.6 mg/dL (0.2-1.0)
[2018-05-29 07:53] LABS: BILIRUBIN, DIRECT 0.5 mg/dL (0.1-0.2); BILIRUBIN,INDIRECT 1.1 mg/dL (0.0-2.0)
[2018-05-29 07:57] LABS: TROPONIN I < 0.015 ng/mL (0.000-0.045)
[2018-05-29 08:08] LABS: CREATINE KINASE, TOTAL 3747 U/L (39-308)
--- NOTE | 2018-05-29 08:18 | NUR ---
LATE NOTE ENTRY FOR 0815. LAB CALLED ASKING, "DOES KENJI COLEY MD WANT THE HEPATIC PANEL STILL ORDERED, THE LABS DRAWN AROUND 4 AM SHOW THOSE RESULTS." CONTACTED KADE JAMES AND STATES, "I THOUGHT I ORDERED THE HEPATIC PANEL AND THE DIRECT AND INDIRECT BILLIRUBIN. THAT'S WHAT I WATNED." CALLED LAB BACK, LAB REQUESTED CONTACT NUMBER TO SPEAK WITH PROVIDER. PROVIDED CONTACT NUMBER FROM [facility].
--- NOTE | 2018-05-29 08:20 | NUR ---
LATE NOTE ENTRY FOR 0800. PT RESTING ON [facility]. PROVIDED PT BREAKFAST TRAY. NO NEEDS REQUESTED AT THIS TIME. SOPHIA. SITTER NEAR DOORWAY IN DIRECT LINE OF SITE FOR OBSERVATION. PT HAS UNLABORED RESPIRATIONS EQUAL BILATERALLY AND IS LAYING ON [facility].
[2018-05-29] MEDS ORDERED: FLUOXETINE HCL 20 MG CAPSULE ONE (08:26)
--- NOTE | 2018-05-29 08:37 | NUR ---
SPOKE TO LANA MILAN. [facility] IS ACCEPTING THE PT. PER BJ[facility], "WE WOULD LIKE TO ARRANGE TRANSPORTATION SOON POSSIBLE. PLEASE CALL BACK FOR AN ETA AT [phone].
--- NOTE | 2018-05-29 08:48 | NUR ---
PT REFUSING TO HAVE TEMPERATURE TAKEN OR BLOOD PRESSURE READ. PROVIDED MEDICATION PER EMAR. PT ROCKING BACK AND FORTH SITTING ON HIS BED. PT HAS UNLABORED RESPIRATIONS EQAUL BILATERALLY. PT IS AOX4. NADN. NO NEEDS EXPRESSED BY PT. SITTER IS NEAR DOORWAY IN DIRECT LINE OF SIGHT OF PT. ALL SI PRECAUTIONS ARE IN PLACE.
[2018-05-29] MEDS ORDERED: FLUOXETINE 10 MG CAP PO SCH (09:00)
--- NOTE | 2018-05-29 09:20 | NUR ---
[facility] NOTIFIED OF REM ETA
[2018-05-29 09:37] LABS: MICROSCOPIC NOT IND
[2018-05-29 09:40] LABS: CULTURE INDICATED? NO
--- NOTE | 2018-05-29 10:26 | NUR ---
Joao koch in EDM - 05/29/18 at 1030 by CHEL Patient AND EMS TRANSPORT STAFF given discharge instructions and they have confirmed that they understand the instructions. Patient ambulatory with steady gait. PT LEFT WITH ALL PERSONAL BELONGINGS TO [facility] VIA TRANSPORTATION BY EMS.
--- NOTE | 2018-05-29 10:31 | NUR ---
UNDID NOTE TYPED UNDER WRONG USER.
--- NOTE | 2018-05-29 10:31 | NUR ---
Patient AND EMS TRANSPORT STAFF given discharge instructions and they have confirmed that they understand the instructions. Patient ambulatory with steady gait. PT LEFT WITH ALL PERSONAL BELONGINGS TO [facility] VIA TRANSPORTATION BY EMS.
[2018-05-29] MEDS ORDERED: QUETIAPINE 100MG TABLET PO SCH (21:00)
== END 2018-05-29 10:34 ==
LOC: ED 05:44 → UNDOADMOB 06:20 → EDIP 06:20
DX: R45.851 Suicidal ideations (principal); R74.0 Nonspecific elevation of levels of transaminase and lactic acid dehydrogenase [LDH]; F19.10 Other psychoactive substance abuse, uncomplicated; F31.9 Bipolar disorder, unspecified
CPT/HCPCS: 36415; 71045; 80053; 80307; 80329; 81003; 82247; 82248; 82550; 84443; 84484; 85025; 99284; 99285; G0480